=== PATIENT | female | born 1945 | race Caucasian/White ===

== ENCOUNTER 2021-10-06 06:36 | Observation (INO) ==
[2021-10-06] MEDS ORDERED: Povidone-Iodine 45 ML, Sodium Chloride IRRigation 1,000 ML IR ONE (07:30)
[2021-10-06] MEDS ORDERED: TOTAL JOINT MIXTURE (100ML) INTRAART ONE (07:30)
[2021-10-06] MEDS ORDERED: CeFAZolin Syr 2,000MG/20 ML 2,000 MG/20 ML SYRINGE IVPB ONE (07:31)
[2021-10-06] MEDS ORDERED: Ringers Solution, Lactated 1,000 ML IVC SCH (07:45)
[2021-10-06] MEDS ORDERED: *HR* FentaNYL (PF) 100 MCG/2 ML VIAL IVP PRN (08:00)
[2021-10-06] MEDS ORDERED: Ondansetron 4 MG/2 ML VIAL IVP PRN ×2 (08:00→17:29)
[2021-10-06] MEDS ORDERED: *HR* OxyCODONE Immed Rel 5 MG TABLET PO PRN (08:00)
[2021-10-06] MEDS ORDERED: *HR* FentaNYL (PF) 100 MCG/2 ML VIAL ONE ×2 (08:12→10:39)
[2021-10-06] MEDS ORDERED: *HR* Rocuronium Bromide 50 MG/5 ML VIAL ONE (08:13)
[2021-10-06] MEDS ORDERED: *HR* Succinylcholine 200 MG/10 ML VIAL IVP ONE (08:13)
[2021-10-06] MEDS ORDERED: Lidocaine HCL 4 ML Topical Solution (Laryng-O-Jet Kit Sterile Pak) TP ONE (08:13)
[2021-10-06] MEDS ORDERED: Ondansetron 4 MG/2 ML VIAL ONE (08:13)
[2021-10-06] MEDS ORDERED: *HR* Propofol 200 MG/20 ML VIAL IVP ONE ×2 (08:13→11:23)
[2021-10-06] MEDS ORDERED: *HR* Midazolam HCl 2 MG/2 ML VIAL ONE (08:13)
[2021-10-06] MEDS ORDERED: Lidocaine -MPF 2% 5 ML VIAL ONE (08:13)
[2021-10-06] MEDS ORDERED: Ropivacaine/PF 0.5% 30 ML VIAL ONE (08:56)
[2021-10-06] MEDS ORDERED: ROPIVACAINE/PF/NS 0.25% 1 EACH SYRINGE INTRAART ONE (08:56)
[2021-10-06] MEDS ORDERED: Vancomycin 1,000 MG VIAL ONE (09:31)
[2021-10-06] MEDS ORDERED: Tranexamic Acid 1,000 MG/10 ML VIAL ONE (10:16)
[2021-10-06] MEDS ORDERED: *HR* Labetalol 20 MG/4 ML SYRINGE IVP ONE ×2 (10:47→10:48)
[2021-10-06] MEDS ORDERED: *HR* HYDROMORPHONE 2 MG/ML VIAL ONE (11:20)
[2021-10-06] MEDS ORDERED: Acetaminophen IV 1,000 MG/100 ML BAG IVPB ONE (11:30)
[2021-10-06] MEDS ORDERED: Sugammadex Sodium 200 MG/2 ML VIAL IV ONE (12:00)
[2021-10-06] MEDS ORDERED: Naloxone 0.4 MG/ML INJ IVP PRN (17:29)
[2021-10-06] MEDS ORDERED: Sennosides 8.6 MG TABLET PO PRN (17:29)
[2021-10-06] MEDS ORDERED: *HR* Promethazine 25 MG/ML VIAL IM PRN (17:29)
[2021-10-06] MEDS ORDERED: MOM Conc 10 ML UD.LIQ PO PRN (17:29)
[2021-10-06] MEDS: Ascorbic Acid 500 MG TABLET PO SCH (18:09)
[2021-10-06] MEDS: Ketorolac 30 MG/ML VIAL IVP SCH (18:24)
[2021-10-06] MEDS: *HR* Metformin 500 MG TABLET PO SCH (18:24)
[2021-10-06] MEDS: CeFAZolin 2 GM/120 ML BAG IVPB SCH (19:30)
[2021-10-06] MEDS: *HR* OxyCODONE Immed Rel 5 MG TABLET PO PRN (21:01)
[2021-10-06] MEDS: Metoprolol XL (24 HR) Succ 50 MG TAB.ER.24H PO SCH (21:01)
[2021-10-07] MEDS: Ketorolac 30 MG/ML VIAL IVP SCH ×2 (00:26→06:12)
[2021-10-07 02:34] LABS: Basophils % 0.2 %; Hematocrit 30.4 % (35.3-44.9); Hemoglobin 10.3 g/dL (11.5-15.4); Immature Granulocytes % 0.9 % (0-4); Lymphocytes # 1.2 K/mcL (0.6-4.6); Lymphocytes % 11.8 %; Mean Corpuscular HGB Conc 33.9 g/dL (31.6-35.5); Mean Corpuscular Hemoglobin 30.7 pg (28.0-33.3); Mean Corpuscular Volume 90.5 fL (83.0-100.0); Mean Platelet Volume 9.9 fL (9.4-12.4); Monocytes # 0.4 K/mcL (0.0-1.3); Monocytes % 3.8 %; Neutrophils # 8.2 K/mcL (1.6-8.9); Platelet Count 149 K/mcL (140-400); Red Blood Count 3.36 M/mcL (3.82-4.97); Segmented Neutrophils % 83.3 %; White Blood Count 9.8 K/mcL (4.3-11.1)
[2021-10-07 02:52] LABS: Calcium 7.7 mg/dL (8.6-10.3); Potassium 4.6 mEq/L (3.5-5.1)
[2021-10-07] MEDS: *HR* OxyCODONE Immed Rel 5 MG TABLET PO PRN ×2 (03:13→20:39)
[2021-10-07] MEDS: CeFAZolin 2 GM/120 ML BAG IVPB SCH (03:13)
[2021-10-07] MEDS: Furosemide 40 MG TABLET PO SCH (08:18)
[2021-10-07] MEDS: Metoprolol XL (24 HR) Succ 50 MG TAB.ER.24H PO SCH ×2 (08:18→20:40)
[2021-10-07] MEDS: Magnesium Oxide 400 MG TABLET PO SCH (08:18)
[2021-10-07] MEDS: *HR* Metformin 500 MG TABLET PO SCH ×2 (08:18→15:23)
[2021-10-07] MEDS: amLODIPine 5 MG TABLET PO SCH (08:18)
[2021-10-07] MEDS: Multivit/Ca/Min/Fe/FA 1 TAB TABLET PO SCH (08:18)
[2021-10-07] MEDS: Apixaban 5 MG TABLET PO SCH ×3 (08:18→20:39)
[2021-10-07] MEDS: Gabapentin 100 MG CAPSULE PO SCH (08:18)
[2021-10-07] MEDS: Ascorbic Acid 500 MG TABLET PO SCH ×2 (08:19→15:23)
[2021-10-07] MEDS: calcitrioL 0.25 MCG CAPSULE PO SCH (08:19)
[2021-10-07] MEDS: lisinopriL 20 MG TABLET PO SCH (08:19)
[2021-10-07] MEDS ORDERED: NON-FORMULARY MEDICATION 1 EACH EACH (Omega-3/Dha/Epa/Fish Oil [Fish Oil 1,000 Mg Softgel] PO SCH (09:00)
[2021-10-07] MEDS ORDERED: NON-FORMULARY MEDICATION 1 EACH EACH (Multivit-Min/Iron/Folic/Lutein [Centrum Silver Women PO SCH (09:00)
[2021-10-07] MEDS ORDERED: NON-FORMULARY MEDICATION 1 EACH EACH (Ubidecarenone [Coq10] 50 MG Tab.Chew) PO SCH (09:00)
[2021-10-07] MEDS ORDERED: 0.9 % Sodium Chloride 1,000 ML IV ONE (09:51)
[2021-10-07] MEDS: Ringers Solution, Lactated 1,000 ML IVC SCH (15:24)
[2021-10-08] MEDS: *HR* OxyCODONE Immed Rel 5 MG TABLET PO PRN ×3 (01:58→12:13)
[2021-10-08] MEDS: Ringers Solution, Lactated 1,000 ML IVC SCH (02:12)
[2021-10-08 05:21] LABS: Basophils % 0.4 %; Eosinophils # 0.1 K/mcL (0.0-0.6); Eosinophils % 1.3 %; Hematocrit 28.8 % (35.3-44.9); Hemoglobin 9.3 g/dL (11.5-15.4); Immature Granulocytes % 0.8 % (0-4); Lymphocytes # 1.4 K/mcL (0.6-4.6); Lymphocytes % 18.6 %; Mean Corpuscular HGB Conc 32.3 g/dL (31.6-35.5); Mean Corpuscular Hemoglobin 30.2 pg (28.0-33.3); Mean Corpuscular Volume 93.5 fL (83.0-100.0); Mean Platelet Volume 9.8 fL (9.4-12.4); Monocytes # 0.5 K/mcL (0.0-1.3); Monocytes % 7.2 %; Neutrophils # 5.4 K/mcL (1.6-8.9); Platelet Count 136 K/mcL (140-400); Red Blood Count 3.08 M/mcL (3.82-4.97); Red Cell Distribution Width 13.4 % (11.5-14.5); Segmented Neutrophils % 71.7 %; White Blood Count 7.5 K/mcL (4.3-11.1)
[2021-10-08 05:57] LABS: Calcium 7.6 mg/dL (8.6-10.3); Potassium 4.3 mEq/L (3.5-5.1)
[2021-10-08 07:24] VITALS: BP 161/76; PULSE 60; TEMP 97.8; O2SAT 96
[2021-10-08] MEDS ORDERED: tiZANidine 4 MG TABLET PO PRN (07:39)
[2021-10-08] MEDS: amLODIPine 5 MG TABLET PO SCH (08:54)
[2021-10-08] MEDS: *HR* Metformin 500 MG TABLET PO SCH (08:54)
[2021-10-08] MEDS: Metoprolol XL (24 HR) Succ 50 MG TAB.ER.24H PO SCH (08:54)
[2021-10-08] MEDS: Ascorbic Acid 500 MG TABLET PO SCH (08:54)
[2021-10-08] MEDS: lisinopriL 20 MG TABLET PO SCH (08:55)
[2021-10-08] MEDS: Apixaban 5 MG TABLET PO SCH (08:55)
[2021-10-08] MEDS: Magnesium Oxide 400 MG TABLET PO SCH (08:55)
[2021-10-08] MEDS: calcitrioL 0.25 MCG CAPSULE PO SCH (08:55)
[2021-10-08] MEDS: Gabapentin 100 MG CAPSULE PO SCH (08:55)
[2021-10-08] MEDS: Furosemide 40 MG TABLET PO SCH (08:55)
[2021-10-08] MEDS: Multivit/Ca/Min/Fe/FA 1 TAB TABLET PO SCH (08:55)
[2021-10-08 13:58] LABS: Adenovirus Not Detected (Not Detect); Bordetella Pertussis Not Detected (Not Detect); Chlamydophila pneumoniae Not Detected (Not Detect); Coronavirus 229E Not Detected (Not Detect); Coronavirus HKU1 Not Detected (Not Detect); Coronavirus NL63 Not Detected (Not Detect); Coronavirus OC43 Not Detected (Not Detect); Human Metapneumovirus Not Detected (Not Detect); Human Rhinovirus/Enterovirus Not Detected (Not Detect); Influenza A Subtype 2009 H1 Not Detected (Not Detect); Influenza B Not Detected (Not Detect); Mycoplasma pneumoniae Not Detected (Not Detect); Parainfluenza Virus 1 Not Detected (Not Detect); Parainfluenza Virus 2 Not Detected (Not Detect); Parainfluenza Virus 3 Not Detected (Not Detect); Parainfluenza Virus 4 Not Detected (Not Detect); Respiratory Syncytial Virus Not Detected (Not Detect); SARS-CoV-2 Not Detected (Not Detect)
== END 2021-10-08 15:00 | disposition other institution (70) ==
LOC: 4WAOSI 06:36 → SDCAOSI 06:36 → 4WAOSI 15:47
PROVIDERS: ADMIT Orthopaedic Surgery; ATTEND Orthopaedic Surgery